=== PATIENT | male | born 1995 | race Caucasian/White ===

== ENCOUNTER 2020-12-04 13:36 | Emergency (ER) | payer OTHER, SELFPAY ==
[~2020-12-04] VITALS: Ht 182.9 cm; Wt 108.9 kg
[2020-12-04 13:40] VITALS: Ht 182.9 cm; Wt 108.9 kg
[2020-12-04 17:17] VITALS: BP 142/96
== END 2020-12-04 17:17 | disposition home or self-care (01) ==
LOC: ED 13:36
DX: J03.90 Acute tonsillitis, unspecified (principal); J45.909 Unspecified asthma, uncomplicated; F17.210 Nicotine dependence, cigarettes, uncomplicated; Z20.828 Contact with and (suspected) exposure to other viral communicable diseases
CPT/HCPCS: U0003